=== PATIENT | male | born 1985 | race Two or more races ===

== ENCOUNTER 2020-09-12 07:15 | Emergency (ER) | payer MEDICAID ==
[~2020-09-12] VITALS: Ht 167.6 cm; Wt 71.7 kg
--- NOTE | 2020-09-12 07:37 | NUR ---
TO ER BED 3, C/O DYSURIA, PENILE DISCHARGE, AND COUGH, MD AT BEDSIDE
--- NOTE | 2020-09-12 07:40 | NUR ---
URINE COLLECTED AND SENT TO LAB
[2020-09-12] MEDS ORDERED: CEFTRIAXONE 500 MG VIAL ONE (07:51)
[2020-09-12] MEDS ORDERED: LIDOCAINE /MPF 1% VIAL 5 ML VIAL ONE (07:51)
[2020-09-12] MEDS ORDERED: DOXYCYCLINE HYCLATE (100 MG) 100 MG TABLET ONE (07:52)
[2020-09-12] MEDS ORDERED: CEFTRIAXONE 500 MG VIAL IM ONE (08:00)
[2020-09-12] MEDS ORDERED: DOXYCYCLINE HYCLATE (100 MG) 100 MG TABLET PO ONE (08:00)
--- NOTE | 2020-09-12 08:00 | NUR ---
CALLED LAB FOR COVID ANTIGEN [facility]
[2020-09-12 08:39] LABS: BILIRUBIN,URINE Negative (NEGATIVE); COLOR,URINE YELLOW (YELLOW); LEUKOCYTE ESTERASE ,URINE Negative (NEGATIVE); NITRITE, URINE Negative (NEGATIVE); PH,URINE 5.5 (5.0-8.0); PROTEIN,URINE Negative (NEGATIVE); UGLUCOSE Negative (NEGATIVE); UROBILINOGEN,URINE 0.2 EU/dL (0.2)
[2020-09-12] MEDS ORDERED: DOXY100C2 PO (08:56)
[2020-09-12 09:04] VITALS: BP 110/70
== END 2020-09-12 10:00 | disposition home or self-care (01) ==
LOC: ER 07:26
DX: N34.2 Other urethritis (principal); R05 Cough; Z20.822 Contact with and (suspected) exposure to COVID-19; F17.210 Nicotine dependence, cigarettes, uncomplicated; E11.9 Type 2 diabetes mellitus without complications; F20.9 Schizophrenia, unspecified
CPT/HCPCS: 71045; 81003; 82962; 87086; 87426; 87491; 87591; 96372; 99284; 99406; C9803; J0696; J3490